=== PATIENT | female | born 2000 | race African-American/Black ===

== ENCOUNTER 2019-12-06 21:25 | Emergency (ER) | payer OTHER ==
[~2019-12-06] VITALS: Ht 157.5 cm; Wt 62.3 kg
[2019-12-06 21:43] VITALS: BP 113/69
== END 2019-12-06 22:15 | disposition home or self-care (01) ==
LOC: M ED 21:25
DX: F10.120 Alcohol abuse with intoxication, uncomplicated (principal); F41.9 Anxiety disorder, unspecified

== ENCOUNTER 2020-02-04 17:39 | Emergency (ER) | payer OTHER ==
[~2020-02-04] VITALS: Ht 154.9 cm; Wt 61.7 kg
[2020-02-04] MEDS ORDERED: TRI-TAB PO (17:48)
[2020-02-04] MEDS ORDERED: NS 1,000 ML IV ONE (18:00)
[2020-02-04 18:12] LABS: BASO % 0.6 % (0.0-1.0); EOS # 0.2 10^3/uL (0.0-0.5); EOS % 3.2 % (0.0-3.0); HEMOGLOBIN 13.1 g/dl (12.0-15.5); LYMPH # 2.5 10^3/uL (1.5-5.0); LYMPH % 35.5 % (24.0-44.0); MEAN CORPUSCULAR HEMOGLOBIN 28.4 pg (27.0-33.0); MEAN CORPUSCULAR HGB CONC 32.8 g/dl (32.0-36.5); MEAN CORPUSCULAR VOLUME 86.8 fl (80.0-96.0); MONO # 0.5 10^3/uL (0.0-0.8); MONO % 6.3 % (0.0-5.0); NEUTROPHILS # 3.9 10^3/uL (1.5-8.5); NEUTROPHILS % 54.1 % (36.0-66.0); PLATELET COUNT, AUTOMATED 227 10^3/uL (150-450); RED BLOOD COUNT 4.61 10^6/uL (4.00-5.40); WHITE BLOOD COUNT 7.1 10^3/uL (4.0-10.0)
[2020-02-04 18:34] LABS: HCG, SERUM QUALITATIVE NEGATIVE (NEGATIVE)
[2020-02-04 18:43] LABS: BLOOD UREA NITROGEN 14 MG/DL (7-18); CALCIUM LEVEL 9.2 MG/DL (8.5-10.1); CARBON DIOXIDE LEVEL 28 MEQ/L (21-32); CHLORIDE LEVEL 108 MEQ/L (98-107); CREATININE FOR GFR 0.87 MG/DL (0.55-1.30); GLOMERULAR FILTRATION RATE > 60.0 (>60); GLUCOSE, FASTING 97 MG/DL (70-100); MAGNESIUM LEVEL 2.1 MG/DL (1.8-2.4); POTASSIUM SERUM 3.9 MEQ/L (3.5-5.1); SODIUM LEVEL 143 MEQ/L (136-145); THYROID STIMULATING HORMONE 0.643 uIU/ML (0.358-3.740)
--- NOTE | 2020-02-04 18:59 | REPVR ---
PROCEDURE INFORMATION: Exam: CT Head Without Contrast Exam date and time: 02/04/2020 6:41 PM Age: 19 years old Clinical indication: Injury or trauma; Fall; Initial encounter; Blunt trauma (contusions or hematomas) TECHNIQUE: Imaging protocol: Computed tomography of the head without contrast. Radiation optimization: All CT scans at this facility use at least one of these dose optimization techniques: automated exposure control; mA and/or kV adjustment per patient size (includes targeted exams where dose is matched to clinical indication); or iterative reconstruction. COMPARISON: No relevant prior studies available. FINDINGS: Brain: Normal. No hemorrhage. Unremarkable white matter. No mass effect. Ventricles: Normal. No ventriculomegaly. Bones/joints: Unremarkable. No acute fracture. Sinuses: Visualized sinuses are unremarkable. No fluid levels. Mastoid air cells: Visualized mastoid air cells are well aerated. Soft tissues: Unremarkable. IMPRESSION: No acute intracranial abnormality. Electronically signed by: Tacos Cadena On 02/04/2020 18:59:10 PM
[2020-02-04 19:15] VITALS: BP 115/74
--- NOTE | 2020-02-05 21:26 | ECGEPIP ---
[facility] - ED Test Date: 2020-02-04 Pat Name: OMAR CONNELL Department: Room: - Gender: Female Manufacturing Applications Engineer: marisol : 2000 Requested By: Madhavi Chaidez Order Number: [id number] Reading MD: Jama Velarde Measurements Intervals [place] Rate: 81 P: 66 [place]: 143 QRS: 75 QRSD: 89 T: 31 QT: 371 QTc: 431 Interpretive Statements SINUS RHYTHM NO PRIORS FOR COMPARISON Electronically Signed on 02-05-2020 21:26:11 EDT by Jama Velarde
== END 2020-02-04 19:40 | disposition home or self-care (01) ==
LOC: M ED 17:39
DX: R55 Syncope and collapse (principal); M54.9 Dorsalgia, unspecified; Z79.3 Long term (current) use of hormonal contraceptives

== ENCOUNTER 2020-05-08 20:41 | Emergency (ER) | payer OTHER ==
[~2020-05-08] VITALS: Ht 154.9 cm; Wt 60.9 kg
[~2020-05-08 20:41] MED LIST: TRI-TAB PO
[2020-05-08] MEDS ORDERED: ACETAMINOPHEN 500 MG TAB PO ONE (21:30)
[2020-05-08] MEDS ORDERED: METOCLOPRAMIDE INJ 10MG/2ML VIAL (J2765 PER 1) IV ONE (21:30)
[2020-05-08] MEDS ORDERED: diphenhydrAMINE 50MG/ML VIAL (J1200) IV ONE (21:30)
[2020-05-08 21:44] LABS: HEMATOCRIT 41.2 % (36.0-47.0); HEMOGLOBIN 13.4 g/dl (12.0-15.5); MEAN CORPUSCULAR HEMOGLOBIN 28.6 pg (27.0-33.0); MEAN CORPUSCULAR HGB CONC 32.5 g/dl (32.0-36.5); PLATELET COUNT, AUTOMATED 223 10^3/uL (150-450); RED BLOOD COUNT 4.68 10^6/uL (4.00-5.40); WHITE BLOOD COUNT 5.9 10^3/uL (4.0-10.0)
[2020-05-08] MEDS ORDERED: KETOROLAC 30 MG/ML 1ML VIAL IV ONE (21:45)
[2020-05-08 22:08] LABS: BLOOD UREA NITROGEN 9 MG/DL (7-18); CALCIUM LEVEL 9.5 MG/DL (8.5-10.1); CARBON DIOXIDE LEVEL 30 MEQ/L (21-32); CHLORIDE LEVEL 106 MEQ/L (98-107); CPK CREATINE PHOSPHOKINASE 122 U/L (26-192); CREATININE FOR GFR 0.75 MG/DL (0.55-1.30); GLOMERULAR FILTRATION RATE > 60.0 (>60); GLUCOSE, FASTING 74 MG/DL (70-100); POTASSIUM SERUM 3.8 MEQ/L (3.5-5.1); SODIUM LEVEL 139 MEQ/L (136-145)
--- NOTE | 2020-05-08 22:59 | REPVR ---
PROCEDURE INFORMATION: Exam: XR Chest, 1 View Exam date and time: 05/08/2020 9:16 PM Age: 19 years old Clinical indication: Cough TECHNIQUE: Imaging protocol: XR of the chest Views: 1 view. COMPARISON: No relevant prior studies available. FINDINGS: Lungs: The lungs appear clear. Pleural space: There is no evidence of pneumothorax or pleural effusion. Heart/Mediastinum: The heart is normal in size. Bones/joints: There is no evidence of bony abnormality. IMPRESSION: Clear appearing lungs. Electronically signed by: Rasta Burnett On 05/08/2020 22:59:17 PM
[2020-05-08] MEDS ORDERED: KETO10TAB PO (23:19)
[2020-05-09 00:37] VITALS: BP 116/80
== END 2020-05-09 00:38 | disposition home or self-care (01) ==
LOC: M ED 20:41
DX: G44.209 Tension-type headache, unspecified, not intractable (principal); M79.10 Myalgia, unspecified site; R05 Cough; Z79.3 Long term (current) use of hormonal contraceptives
CPT/HCPCS: 71045; 80048; 82550; 84702; 85027; 85379; 87486; 87581; 87633; 87798; 96374; 96375; 99284; J1200; J1885; J2765

== ENCOUNTER 2020-06-09 09:27 | Emergency (ER) | payer OTHER ==
[~2020-06-09] VITALS: Ht 154.9 cm; Wt 62.5 kg
[~2020-06-09 09:27] MED LIST changes: +KETO10TAB PO
[2020-06-09] MEDS ORDERED: DIFL200T PO (11:27)
[2020-06-09] MEDS ORDERED: MACR100C43 PO (11:27)
[2020-06-09 11:33] VITALS: BP 100/61
== END 2020-06-09 11:39 | disposition home or self-care (01) ==
LOC: M ED 09:27
DX: N39.0 Urinary tract infection, site not specified (principal); B37.3 Candidiasis of vulva and vagina